=== PATIENT | male | born 1965 | race Caucasian/White ===

== ENCOUNTER 2022-09-03 19:36 | Emergency (ER) | payer OTHER ==
[~2022-09-03] VITALS: Ht 167.6 cm; Wt 102.3 kg
[~2022-09-03 19:36] MED LIST: NORCO 325 MG-51 TAB PO
[2022-09-03 19:45] VITALS: TEMP 98
[2022-09-03 21:42] VITALS: BP 135/68; PULSE 62
== END 2022-09-03 21:42 | disposition home or self-care (01) ==
LOC: COL.ER 19:36
DX: S09.90XA Unspecified injury of head, initial encounter (principal); S00.12XA Contusion of left eyelid and periocular area, initial encounter; S00.11XA Contusion of right eyelid and periocular area, initial encounter; S00.83XA Contusion of other part of head, initial encounter; R03.0 Elevated blood-pressure reading, without diagnosis of hypertension; Z28.310 Unvaccinated for COVID-19; V49.60XA Unspecified car occupant injured in collision with unspecified motor vehicles in traffic accident, initial encounter; Y92.410 Unspecified street and highway as the place of occurrence of the external cause